=== PATIENT | female | born 1990 | race Caucasian/White ===

== ENCOUNTER 2021-07-04 08:36 | Emergency (ER) | payer BC, SELFPAY ==
[2021-07-04] MEDS ORDERED: Dexamethasone 10 MG/ML VIAL ONE (09:16)
[2021-07-04] MEDS ORDERED: Ketorolac Tromethamine 30 MG/ML VIAL ONE (09:17)
[2021-07-04] MEDS ORDERED: Lorazepam 2 MG/ML VIAL ONE (09:48)
== END 2021-07-04 11:48 | disposition home or self-care (01) ==
LOC: CSHERS 08:36
DX: M54.50 Low back pain, unspecified (principal)
CPT/HCPCS: 72131; 96374; 96375; J1100; J1885; J2060